=== PATIENT | female | born 1960 | race Caucasian/White ===

== ENCOUNTER 2019-03-28 12:31 | Emergency (ER) | payer OTHER ==
[~2019-03-28] VITALS: Ht 162.6 cm; Wt 86.4 kg
[~2019-03-28 12:31] MED LIST: CELEXA10 MG PO; CLINDAMYCIN300 MG PO; NORCO 325 MG-51 TAB PO
[2019-03-28 12:38] VITALS: TEMP 98.6
[2019-03-28] MEDS ORDERED: COZAAR 50MG50 MG/TAB (12:42)
[2019-03-28 13:12] LABS: BASO % 0.6 % (0.0-2.0); EOS # 0.3 (0.0-0.7); EOS % 4.7 % (0-4.0); GRAN # 4.2 (1.4-6.5); GRAN % 61.3 % (42.2-75.2); HEMATOCRIT 40.7 % (37.0-47.0); HEMOGLOBIN 13.8 g/dl (12.5-16.0); LYMPH # 1.7 (1.2-3.4); LYMPH % 25.5 % (20.0-51.0); MEAN CELL VOLUME 91 fl (80.0-100.0); MEAN CORPUSCULAR HEMOGLOBIN 31 pg (27.0-31.0); MEAN CORPUSCULAR HGB CONC 34 g/dl (33.0-37.0); MEAN PLATELET VOLUME 10.3 fl (7.4-10.4); MONO # 0.5 (0.1-0.6); MONO % 7.5 % (1.7-9.3); PLATELET COUNT 223 K/mm3 (130-400); RED BLOOD COUNT 4.48 M/mm3 (4.10-5.30); REDCELL DISTRIBUTION WIDTH-CV 12.5 % (11.5-14.5)
[2019-03-28 13:23] LABS: ALANINE AMINOTRANSFERASE 69 U/L (9-52); ALBUMIN 4.4 gm/dL (3.5-5.0); ALKALINE PHOSPHATASE 83 U/L (50-136); ANION GAP 8 mmol/L (7-16); AST,SGOT 37 U/L (15-37); BILIRUBIN,TOTAL 0.5 mg/dL (0.0-1.0); BLOOD UREA NITROGEN 18 mg/dL (7-17); CALCIUM 9.5 mg/dL (8.4-10.2); CARBON DIOXIDE 26 mmol/L (22-30); CHLORIDE 107 mmol/L (98-107); CREATININE, serum 0.67 (0.52-1.25); GLUCOSE 84 mg/dL (74-106); POTASSIUM 3.8 mmol/L (3.4-5.0); SODIUM 141 mmol/L (137-145); TOTAL PROTEIN 7.5 gm/dL (6.4-8.2)
[2019-03-28 13:30] LABS: PROTHROMBIN TIME 11.7 SECONDS (9.7-12.8)
[2019-03-28 13:33] LABS: PARTIAL THROMBOPLASTIN TIME 33.3 SECONDS (26.0-37.0)
[2019-03-28 13:35] LABS: D-DIMER < 200.00 ng/mLDDu (200-230); TROPONIN-I < 0.012 ng/mL (0.000-0.035)
[2019-03-28 16:00] VITALS: BP 126/70; PULSE 57
== END 2019-03-28 16:05 | disposition home or self-care (01) ==
LOC: COL.ER 12:31
PROVIDERS: Emergency Medicine
DX: R07.89 Other chest pain (principal); I10 Essential (primary) hypertension; Z87.891 Personal history of nicotine dependence